=== PATIENT | female | born 1970 | race Caucasian/White ===

== ENCOUNTER 2017-04-27 14:22 | Emergency (ER) | payer BC ==
[~2017-04-27] VITALS: Ht 160 cm; Wt 60.0 kg
[~2017-04-27 14:22] MED LIST: HYDR-762 PO; ONDA4TAB35 PO
[2017-04-27 14:26] VITALS: Ht 160 cm; Wt 60.0 kg
[2017-04-27] MEDS ORDERED: ASPIRIN 325 MG TAB PO STA (14:43)
[2017-04-27 15:05] LABS: BASOPHILS % 0.2 % (0.0-2.0); EOSINOPHILS # 0.1 10^3/ul (0.0-0.5); EOSINOPHILS % 2.3 % (0.0-7.0); HEMATOCRIT 33.1 % (37.0-47.0); HEMOGLOBIN 11.1 g/dl (12.0-16.0); LYMPHOCYTES # 2.1 10^3/ul (0.8-2.9); LYMPHOCYTES % 40.8 % (15.0-51.0); MEAN CORPUSCULAR HEMOGLOBIN 29.9 pg (29.0-33.0); MEAN CORPUSCULAR HGB CONC 33.5 g/dl (32.0-37.0); MEAN CORPUSCULAR VOLUME 89.2 fl (82.0-101.0); MEAN PLATELET VOLUME 11.9 fl (7.4-10.4); MONOCYTE # 0.5 10^3/ul (0.3-0.9); MONOCYTES % 8.6 % (0.0-11.0); NEUTROPHIL # 2.5 10^3/ul (1.6-7.5); NEUTROPHILS % 47.9 % (39.0-77.0); PLATELET COUNT 139 10^3/UL (140-415); RED BLOOD COUNT 3.71 10^6/ul (4.20-5.40); RED CELL DISTRIBUTION WIDTH 13.9 % (11.5-14.5); WHITE BLOOD COUNT 5.3 10^3/ul (4.8-10.8)
[2017-04-27 15:26] LABS: INR 0.96; PROTIME 12.8 Sec (12.2-14.2)
[2017-04-27 15:42] LABS: ANION GAP 19 (8-16); BLOOD UREA NITROGEN 9 mg/dl (7-20); CALCIUM 9.3 mg/dl (8.4-10.2); CARBON DIOXIDE 25 mmol/L (21-31); CHLORIDE 106 mmol/L (97-110); CREATININE 0.68 mg/dl (0.44-1.00); GLUCOSE 91 mg/dl (70-220); POTASSIUM 3.6 mmol/L (3.5-5.1); SODIUM 146 mmol/L (135-144)
[2017-04-27 15:54] LABS: B-TYPE NATRIURETIC PEPTIDE 188 PG/ML (0-125); TROPONIN-I < 0.012 ng/ml (0.00-0.12)
--- NOTE | 2017-04-27 16:31 | RADRPT ---
PROCEDURE: XR Chest. CLINICAL INDICATION: Chest pain TECHNIQUE: Single frontal chest x-ray. COMPARISON: None. FINDINGS: The lungs are clear. No focal opacification is seen. Minor basilar atelectasis is present. The car diomediastinal silhouette is unremarkable. The osseous structures are unremarkable. IMPRESSION: 1. There is no acute cardiopulmonary process. 2. Minor bibasilar atelectasis. RPTAT: PP .He Fisher MD, MD Date Time Electronically viewed and signed by .He Fisher MD, on 04/27/2017 16:30 .B/
[2017-04-27 16:45] VITALS: TEMP 98.1
[2017-04-27] MEDS ORDERED: KETOROLAC 30 MG INJ IV STA (16:54)
[2017-04-27] MEDS ORDERED: morphine 4 MG/ML VIAL IV STA (17:41)
[2017-04-27] MEDS ORDERED: NAPR-688 PO (20:03)
[2017-04-27] MEDS ORDERED: HYDR-906 PO (20:03)
--- NOTE | 2017-04-27 20:10 | ERD ---
ER Documentation Chief Complaint Date/Time DATE: 04/27/17 TIME: 20:06 Chief Complaint CHEST PAIN RADIATING TO LT ARM SINCE 0800 PM LAST NIGHT HPI This 46-year-old female presents with left sharp upper chest pain and left arm pain that began around 8 PM last night. States that the pain came on quickly. Also her left upper trapezius area as well. She denies any shortness of breath. She has no vomiting or fever chills. Pain is worse when she makes certain arm movements. ROS All systems reviewed and are negative except as per history of present illness. Medications Home Meds Active Scripts Hydrocodone/Acetaminophen (Esmond 5-325 Tablet) 1 Each Tablet, 1 EACH PO Q6, #10 TAB Prov:TYSONABBIE DO 04/27/17 Naproxen* (Naproxen*) 500 Mg Tablet, 500 MG PO BID Y for PAIN, #20 TAB Prov:TYSONABBIE DO 04/27/17 Discontinued Reported Medications [none] Unknown Strength No Conflict Check 08/01/15 Discontinued Scripts Ondansetron Hcl* (Zofran* ODT) 4 mg -ODT Tab.disper, 4 MG PO Q8 Y for NAUSEA AND /OR VOMITING, #30 TAB Prov:EDISON STEWART [employer]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 08/02/15 Hydrocodone Bit-Acetaminophen* (Esmond*) 10-325 Mg Tablet, 1 TAB PO Q6 Y for PAIN , #20 TAB Prov:EDISON STEWART [employer]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 08/02/15 Allergies Allergies: Coded Allergies: No Known Allergy (Unverified , 04/27/17) PMhx/Soc History of Surgery: Yes (hernia repair) Anesthesia Reaction: No Hx Neurological Disorder: No Hx Respiratory Disorders: No Hx Cardiac Disorders: No Hx Psychiatric Problems: No Hx Miscellaneous Medical Probl: No Hx Alcohol Use: No Hx Substance Use: No Hx Tobacco Use: No Smoking Status: Never smoker Physical Exam Vitals Vital Signs Date Time Temp Pulse Resp B/P Pulse Ox O2 Delivery O2 Flow Rate FiO2 04/27/17 18:25 66 20 128/66 99 Room Air 04/27/17 16:45 98.1 63 20 124/66 99 Room Air 04/27/17 14:26 98.1 81 18 121/62 99 Physical Exam Const: [] No distress Head: Atraumatic Eyes: Normal Conjunctiva ENT: Normal External Ears, Nose and Mouth. Neck: Full range of motion..~ No meningismus. Resp: Clear to auscultation bilaterally Cardio: Regular rate and rhythm, no murmurs Abd: Soft, non tender, non distended. Normal bowel sounds Skin: No petechiae or rashes Back: No midline or flank tenderness Ext: No cyanosis, or edema, right bicep pain as well as tenderness along the left upper chest, no deformities, distal pulses intact all 4 extremities Neur: Awake and alert and oriented 3, no focal deficits Psych: Normal Mood and Affect Result Diagram: 04/27/17 1451 04/27/17 1451 Results 24 hrs Laboratory Tests Test 04/27/17 14:51 White Blood Count 5.310^3/ul Red Blood Count 3.7110^6/ul Hemoglobin 11.1g/dl Hematocrit 33.1% Mean Corpuscular Volume 89.2fl Mean Corpuscular Hemoglobin 29.9pg Mean Corpuscular Hemoglobin Concent 33.5g/dl Red Cell Distribution Width 13.9% Platelet Count 37076^3/UL Mean Platelet Volume 11.9fl Neutrophils % 47.9% Lymphocytes % 40.8% Monocytes % 8.6% Eosinophils % 2.3% Basophils % 0.2% Nucleated Red Blood Cells % 0.0/100WBC Neutrophils # 2.510^3/ul Lymphocytes # 2.110^3/ul Monocytes # 0.510^3/ul Eosinophils # 0.110^3/ul Basophils # 0.010^3/ul Nucleated Red Blood Cells # 0.010^3/ul Prothrombin Time 12.8Sec Prothrombin Time Ratio 1.0 INR International Normalized Ratio 0.96 Activated Partial Thromboplast Time 30.0Sec Sodium Level 146mmol/L Potassium Level 3.6mmol/L Chloride Level 106mmol/L Carbon Dioxide Level 25mmol/L Anion Gap 19 Blood Urea Nitrogen 9mg/dl Creatinine 0.68mg/dl Glucose Level 91mg/dl Calcium Level 9.3mg/dl Troponin I < 0.012ng/ml B-Type Natriuretic Peptide 188PG/ML Current Medications Medications (Trade) Dose Ordered Sig/Pancho Route PRN Reason Start Time Stop Time Status Last Admin Dose Admin Aspirin (Aspirin) 325 mg ONCE STAT PO 04/27/17 14:43 04/27/17 14:44 DC 04/27/17 14:56 Ketorolac Tromethamine (Toradol) 30 mg ONCE STAT IV 04/27/17 16:54 04/27/17 16:55 DC 04/27/17 17:01 Morphine Sulfate (morphine) 4 mg ONCE STAT IV 04/27/17 17:41 04/27/17 17:43 DC 04/27/17 17:59 Procedures/MDM Atypical chest pain and left arm pain suspicious for musculoskeletal pain. No signs of cardiac ischemia at all. Patient was given Toradol as well as morphine which helped with her pain. Also given aspirin. Stated her pain was mostly in the left upper arm. Tenderness to palpation makes it suspicious for musculoskeletal pain of the left upper arm. Shoulder which also heart is normal on x-ray. See no reason to suspect any fracture she has not had trauma and I doubt any bony abnormality of left upper arm. I am discharging with instructions to follow-up with a primary care doctor next couple days as well as obtain an echocardiogram as an outpatient. Discharging with naproxen and Esmond. EKG interpretation: Normal sinus rhythm rate of 74, incomplete right bundle branch block, normal axis, no ST or T-wave changes concerning for acute ischemia. Normal intervals Recommend interpretation: Normal sinus without arrhythmia Chest x-ray interpretation: I see no acute process. I see no pulmonary edema, no infiltrates, no fractures, no pneumothorax. Departure Diagnosis: Primary Impression: Left upper arm pain Additional Impression: Chest pain Condition: Stable Patient Instructions: Chest Pain, Uncertain Cause Additional Instructions: Llame al doctor KOREY y aminata marco RADHA PARA DENTRO DE 1-2 FORMAN. Consigue marco radha para un ECHOCARDIOGRAM. Dgale a la secretaria que nosotros le instruimos hacer esta radha.Avise o llame si waggoner condicin se empeora antes de la radha. Regresa aqui si peor o no mejor. ABBIE MEHTA DO Apr 27, 2017 20:10
[2017-04-27 20:15] VITALS: BP 109/59; PULSE 57; RESP 20
== END 2017-04-27 20:16 | disposition home or self-care (01) ==
LOC: E/R 14:22
DX: M79.622 Pain in left upper arm (principal)
CPT/HCPCS: 36415; 71010; 80048; 83880; 84484; 85025; 85610; 85730; 93005; 96374; 96375; J1885; J2270; Z7502; Z7610